=== PATIENT | female | born 1965 | race Caucasian/White ===

== ENCOUNTER 2025-06-09 06:59 | Day surgery (SDC) | payer OTHER ==
--- NOTE | 2025-06-06 15:24 | ELECTROCARDIOGRAPH REPORT ---
[facility] Test Date: 2025-06-06 Test Time: 15:22:29 Pat Name: CEE JIMENEZ Department: [facility]-PRE-OP Patient ID: [id number] Room: Gender: F [employer]: : 1965 Requested By: ALICIA MILES Order Number: [id number] Reading MD: Dr. KIRSTEN Thompson Measurements Intervals [place] Rate: 80 P: 19 MA: 171 QRS: 78 QRSD: 100 T: 45 QT: 384 QTc: 443 Interpretive Statements Sinus rhythm Electronically Signed On 06-07-2025 13:29:[address] KIRSTEN Thompson Please click the below link to view image of tracing.
[2025-06-06 15:53] LABS: MEAN PLATELET VOLUME 8.9 FL (7.4-10.4); PRE OP HEMATOCRIT 41.5 % (35.0-45.0); PRE OP HEMOGLOBIN 13.9 g/dL (12.0-16.0); PRE OP PLATELET COUNT 400 X10'3 (140-440); PRE OP WHITE BLOOD COUNT 10.1 10'3 (4.8-10.8); RED CELL DISTRIBUTION WIDTH 14.1 % (11.5-14.5)
[2025-06-06 16:03] LABS: CREATININE 0.85 MG/DL (0.40-0.90); PRE OP ALT 13 U/L (30-65); PRE OP ANION GAP 7 (8-16); PRE OP AST 8 U/L (10-37); PRE OP BILIRUB, TOTAL 0.2 MG/DL (0.0-1.0); PRE OP GLUCOSE 93 MG/DL (70-104); PRE OP SODIUM 141 MMOL/L (135-145); TOTAL CARBON DIOXIDE 30.1 MMOL/L (24-32); eGFR 68 ML/MIN
[2025-06-06 16:15] LABS: PRE OP POTASSIUM 3.2 MMOL/L (3.4-5.1)
[2025-06-09] VITALS (7 sets, daily range): BP systolic 125–165; BP diastolic 80–91; PULSE 72–81; RESP 10–17; TEMP 98; O2SAT 93–98
[~2025-06-09] VITALS: Ht 154.9 cm; Wt 77.1 kg
[~2025-06-09 06:59] MED LIST: NO HOME MEDS; ceFAZolin 2gm/dext,iso 50mL 50 ML IV ONE
[2025-06-09] MEDS ORDERED: BUPIVAcaine 2.5mg/ml inj 50ml vial (contains preservative) ONE (07:49)
[2025-06-09] MEDS ORDERED: LIDOcaine 2% (20mg/ml) 5ml vial ONE ×2 (07:50→07:51)
[2025-06-09] MEDS ORDERED: triamcinolone acetonide 40mg/ml inj ONE (07:50)
[2025-06-09] MEDS: ringers solution, lacted 1,000 ML IV SCH (07:57)
[2025-06-09] MEDS ORDERED: midazolam 1 mg/ML 2ml injection ONE (08:21)
[2025-06-09] MEDS ORDERED: fentaNYL/PF 50MCG/1 ML 2ML syringe ONE (08:31)
[2025-06-09] MEDS ORDERED: propofol inj 20 ML IV ONE ×2 (08:31)
[2025-06-09] MEDS ORDERED: LIDOcaine 0.5% (5mg/ml) 50ml vial ONE (08:40)
[2025-06-09] MEDS ORDERED: HYDROmorphone/PF 0.2 MG/ML SYRINGE IV PRN (09:20)
[2025-06-09] MEDS ORDERED: hydrALAZINE 20mg/ml inj. IV PRN (09:20)
[2025-06-09] MEDS ORDERED: ondansetron/PF 4mg/2ml inj IV PRN (09:20)
[2025-06-09] MEDS ORDERED: ringers solution, lacted 1,000 ML IV SCH (09:20)
[2025-06-09] MEDS ORDERED: labetalol 20mg/4ml (5mg/ml) syringe IV PRN (09:20)
[2025-06-09] MEDS: ketorolac trometh 30MG/ML vial 30 MG/ML VIAL IV ONE (09:25)
[2025-06-09] MEDS: acetaminophen 1,000mg/100ml IV 100 ML IV PRN (09:26)
[2025-06-09] MEDS: morphine 4 MG/ML inj SYRINge IV PRN (09:29)
[2025-06-09] MEDS: HYDROmorphone/PF 0.2 MG/ML SYRINGE IV PRN (09:41)
[2025-06-09] MEDS: HYDROcodone/acetaminophen 10/325mg tab PO ONE (09:52)
--- NOTE | 2025-06-09 13:34 | OPERATIVE REPORT ---
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 Post-Operative Diagnosis Left wrist carpal tunnel syndrome, left elbow cubital tunnel syndrome, left thumb carpometacarpal joint arthritis Procedure Performed Left wrist open carpal tunnel release, left ulnar neuroplasty at elbow with in- situ decompression, left thumb ligament reconstruction tendon interposition arthroplasty Surgeon: Chapito Wheat MD Propellant Charge Loader None Anesthesiologist: Vaughn Sevilla Type of Anesthesia: Regional Findings: Estimated Blood Loss: None Specimen Removed: None Description of Procedure: The patient is a 60-year-old woman with the the above issues involving the left upper extremity. Surgery is indicated to relieve symptoms. Risks and benefits were discussed with the patient and she agreed to proceed. PROCEDURE: After the block was given the left arm was prepped and draped in the usual manner. The carpal tunnel was addressed first. An incision was made in the palm ulnar to the thenar crease in line with the ring finger. Blunt dissection was performed through deeper tissues until the transverse carpal ligament was encountered. The carpal tunnel was entered with an incision in line with the skin incision. The nerve was protected and the ligament was released distally and proximally. The forearm fascia proximal to the incision was released using bunt Metzenbaum scissors. The nerve was decompressed at this point. The wound was irrigated and the small bleeders were cauterized. The wound was then closed with 5-O nylon sutures. An incision was made over the medial elbow posterior to the epicondyle, through skin. Blunt dissection was done to the cubital tunnel. Karimi's ligament was opened, the nerve was identified and protected. The nerve was decompressed proximally and distally 6 cm in each direction. It was decompressed at this time. Small bleeders were cauterized , the wound was closed with vicryl andProlene suture, followed by Steri-strips. Marcaine was injected and a sterile dressing was applied. The tourniquet was released and the hand perfused well. The patient was taken to the recovery room in stable condition and tolerated the procedure well. Attention was turned to the thumb. The first incision was made over the flexor carpi radialis tendon in the forearm, 8cm proximal to the wrist crease. The tendon sheath was opened, and the tendon was transected at the musculotendinous junction. The wound was closed with Monocryl suture. An incision was made over the dorsal thumb metacarpal, curving proximally toward the wrist crease. Cutaneous nerves were mobilized, and an arthrotomy was made around the trapezium, which was then removed using the sagittal saw and the rongeur. A diagonal tunnel was made in the metacarpal using the 4mm round purvi. The FCR tendon was pulled subcutaneously into the thumb wound, leaving it attached distally to the base of the second metacarpal. The proximal end of the tendon was passed through the bone tunnel, pulled tight, and sutured to itself and the periosteum using 4-0 Fiberwire suture. This completed the SUSPENSIONPLASTY portion of the procedure, the remainder of the tendon was folded upon itself and suture due to the space created by the trapezium excision using a deep capsular stitch. This completed the INTERPOSITION portion of the procedure The capsule was closed over the graft with Vicryl suture, and the skin with Monocryl and Steri-strips. Marcaine was injected, and a sterile dressing was applied, along with a plaster thumb spica splint. The tourniquet was removed and the hand perfused well. The patient was taken to the recovery room in stable condition. Sponge and needle counts were correct CHAPITO WHEAT Jr., MD Jun 09, 2025 13:34
== END 2025-06-09 10:14 | disposition home or self-care (01) ==
LOC: PAS 06:59
PROVIDERS: ATTEND Orthopaedic Surgery Hand Surgery
DX: G56.02 Carpal tunnel syndrome, left upper limb (principal); G56.22 Lesion of ulnar nerve, left upper limb; M18.12 Unilateral primary osteoarthritis of first carpometacarpal joint, left hand; Z98.891 History of uterine scar from previous surgery; Z98.890 Other specified postprocedural states; Z88.0 Allergy status to penicillin
CPT/HCPCS: 25448; 36415; 64718; 64721; 80053; 82948; 85025; 93005; J0131; J1171; J1885; J2003; J2250; J2270; J2704; J3010; J3301; J3490; J7030; J7120; Z7506; Z7512; A4215; A4618; A6449; A7000